=== PATIENT | female | born 1980 ===

== ENCOUNTER → 2020-01-06 | Outpatient (CLI) | payer BC ==
[~2020-01-06] MED LIST: BUPIVACAINE MPF 0.5% 10 ML VIAL. INT ART ONE; CONTRAST GIVEN. MC PRN; DIAZEPAM10 MG PO; IBUP100O25 PO; IOHEXOL 300 MG/ML 50 ML VIAL. INT ART ONE; LIDOCAINE 1% Multi-Dose 20 ML VIAL. ID ONE; NAPR220T70 PO; methylPREDNISolone ACETATE 40 MG/ML VIAL. INT ART ONE
--- NOTE | 2020-01-06 15:00 | KCIC ---
[facility] JT ASP/INJ RT History: Pain Technique: Patient was informed of the risks to include pain, infection, bleeding, allergic reaction. All questions were answered. Patient signed a written consent form for right hip injection for pain therapy. Patient was placed in supine position on the fluoroscopy table. The external skin site overlying right hip was prepped and draped in the usual sterile fashion. Betadine was utilized for cleansing solution. 1% lidocaine was utilized for local anesthesia to the depth of the bone. 22-gauge spinal needle was advanced under fluoroscopy to depth of the bone. Mixture of 4 cc anesthetic and 80 mg Depo-Medrol were injected during fluoroscopic visualization. Needle was removed. There were no immediate complications. Bandage was applied. Fluoroscopy time 28 seconds. Single fluoroscopic image saved. Impression: 1. Successful right hip steroid injection. Electronically signed by: Pacheco Bautista DO (01/06/2020 2:57 PM) [id number]
== END | disposition home or self-care (01) ==
LOC: KCIC 10:17
PROVIDERS: ATTEND Orthopaedic Surgery
DX: M16.11 Unilateral primary osteoarthritis, right hip (principal); Z79.899 Other long term (current) drug therapy
CPT/HCPCS: 20610; 77002; J1030; J3490; Q9967